=== PATIENT | male | born 1930 | race Caucasian/White ===

== ENCOUNTER → 2016-07-04 | Outpatient (CLI) | payer MEDICARE, OTHER ==
[~2016-07-04] MED LIST: COUMADIN5 MG PO; DIABETA5 MG PO; ENALAPRIL MALEA20 MG PO; LASIX40 MG PO; METFORMIN500 MG PO; NORVASC 10MG10 MG PO; POTASSIUM CL 220 MEQ PO; SOTALOL HCL80 MG PO; ZOCOR40 MG PO
== END ==
LOC: COL.RAD 12:36
DX: N50.9 Disorder of male genital organs, unspecified (principal)

== ENCOUNTER 2017-12-02 08:16 | Day surgery (SDC) | payer MEDICARE, OTHER ==
[2017-12-02] VITALS (7 sets, daily range): BP systolic 145–185; BP diastolic 73–101; PULSE 69–76; TEMP 97.2–98
[~2017-12-02] VITALS: Ht 172.7 cm; Wt 102.2 kg
[~2017-12-02 08:16] MED LIST changes: +COUMADIN4 MG PO; -COUMADIN5 MG PO
[2017-12-02 09:12] LABS: HEMATOCRIT 41.9 % (42.0-52.0); HEMOGLOBIN 14.4 g/dl (13.5-18.0); MEAN CELL VOLUME 104 fl (80.0-100.0); MEAN CORPUSCULAR HEMOGLOBIN 36 pg (27.0-31.0); MEAN CORPUSCULAR HGB CONC 34 g/dl (33.0-37.0); PLATELET COUNT 228 K/mm3 (130-400); RED BLOOD COUNT 4.03 M/mm3 (4.20-5.60); REDCELL DISTRIBUTION WIDTH-CV 15.1 % (11.5-14.5)
[2017-12-02 09:18] LABS: INR 2.2 (0.8-3.0); PROTHROMBIN TIME 24.8 SECONDS (9.7-12.8)
[2017-12-02 09:23] LABS: CREATININE, serum 1.55 mg/dL (0.66-1.25); POTASSIUM 4.8 mmol/L (3.4-5.0)
[2017-12-02] MEDS ORDERED: PACERONE400 MG PO (09:35)
[2017-12-02] MEDS ORDERED: CARDIZEM CD360 MG PO (09:37)
== END 2017-12-02 14:00 | disposition home or self-care (01) ==
LOC: COL.CAR 08:16
PROVIDERS: Internal Medicine Cardiovascular Disease
DX: I48.0 Paroxysmal atrial fibrillation (principal); I34.0 Nonrheumatic mitral (valve) insufficiency; I10 Essential (primary) hypertension; E78.5 Hyperlipidemia, unspecified; I35.0 Nonrheumatic aortic (valve) stenosis; I11.0 Hypertensive heart disease with heart failure; I50.9 Heart failure, unspecified; E11.9 Type 2 diabetes mellitus without complications; G47.33 Obstructive sleep apnea (adult) (pediatric); Z79.84 Long term (current) use of oral hypoglycemic drugs; Z79.899 Other long term (current) drug therapy
CPT/HCPCS: G9654; J2704; J3010; J7030

== ENCOUNTER 2018-11-19 16:33 | Inpatient (IN) | payer MEDICARE, BC ==
[~2018-11-19] VITALS: Ht 172.7 cm; Wt 98.8 kg
[~2018-11-19 16:33] MED LIST changes: +CARDIZEM CD360 MG PO; +PACERONE400 MG PO
[2018-11-19] MEDS ORDERED: GLUCOPHAGE1000 MG PO (17:20)
[2018-11-19] MEDS ORDERED: CORDARONE200 MG/TAB PO (17:21)
[2018-11-19] MEDS ORDERED: LASIX 20MG TABL20 MG PO (17:21)
[2018-11-19] MEDS ORDERED: VASOTEC20 MG PO (17:23)
[2018-11-19] MEDS ORDERED: COUMADIN 3MG3 MG/TAB PO (17:24)
[2018-11-19 17:26] LABS: BASO # 0.1 (0.0-0.2); BASO % 0.4 % (0.0-2.0); EOS # 0.1 (0.0-0.7); EOS % 0.7 % (0-4.0); GRAN # 10.8 (1.4-6.5); HEMATOCRIT 38.6 % (42.0-52.0); HEMOGLOBIN 12.8 g/dl (13.5-18.0); LYMPH # 1.1 (1.2-3.4); LYMPH % 7.9 % (20.0-51.0); MEAN CELL VOLUME 105 fl (80.0-100.0); MEAN CORPUSCULAR HEMOGLOBIN 35 pg (27.0-31.0); MEAN CORPUSCULAR HGB CONC 33 g/dl (33.0-37.0); MONO # 0.9 (0.1-0.6); PLATELET COUNT 406 K/mm3 (130-400); RED BLOOD COUNT 3.68 M/mm3 (4.20-5.60); REDCELL DISTRIBUTION WIDTH-CV 13.5 % (11.5-14.5)
[2018-11-19 17:27] LABS: INR 3.7 (0.8-3.0)
[2018-11-19 17:30] LABS: PARTIAL THROMBOPLASTIN TIME 52.7 SECONDS (26.0-37.0)
[2018-11-19 17:33] LABS: PROTHROMBIN TIME 45.6 SECONDS (9.7-12.8)
[2018-11-19 17:34] LABS: ARTERIAL BLD GAS O2 SATURATION 92.4 % (92-100); ARTERIAL BLD GAS TCO2 CT 23.9; ARTERIAL BLOOD GAS BASE EXCESS -0.8 (-2-2); ARTERIAL BLOOD GAS HCO3 22.9 meq/L (22-26); ARTERIAL BLOOD GAS PCO2 34.5 mmHg (35-45); ARTERIAL BLOOD GAS pH 7.44 (7.35-7.45)
[2018-11-19 17:36] LABS: ALANINE AMINOTRANSFERASE 56 U/L (21-72); ALBUMIN 3.3 gm/dL (3.5-5.0); ALKALINE PHOSPHATASE 116 U/L (50-136); ANION GAP 12 mmol/L (7-16); AST,SGOT 50 U/L (15-37); BILIRUBIN,TOTAL 0.4 mg/dL (0.0-1.0); BLOOD UREA NITROGEN 27 mg/dL (9-20); CALCIUM 8.7 mg/dL (8.4-10.2); CARBON DIOXIDE 23 mmol/L (22-30); CHLORIDE 105 mmol/L (98-107); CREATININE, serum 1.68 (0.66-1.25); GLUCOSE 140 mg/dL (74-106); POTASSIUM 4.4 mmol/L (3.4-5.0); SODIUM 140 mmol/L (137-145); TOTAL PROTEIN 6.3 gm/dL (6.4-8.2)
[2018-11-19 17:47] LABS: TROPONIN-I < 0.012 ng/mL (0.000-0.035)
[2018-11-19 19:19] LABS: COLLECTION METHOD CLEAN CATCH
[2018-11-19] MEDS ORDERED: OMEGA-3 1000 MG1 CAP PO (19:49)
[2018-11-19] MEDS ORDERED: VITAMIN D31000 I1 PO (19:50)
[2018-11-19 20:04] LABS: HYALINE CAST >12 /lpf; MUCOUS Present /lpf; PH 5 (5-8); SQUAMOUS EPITHELIAL 0-2 /hpf; URINE APPEARANCE Hazy; URINE BACTERIA None Seen /hpf; URINE BILIRUBIN Negative (NEGATIVE); URINE BLOOD Negative (NEGATIVE); URINE COLOR Yellow; URINE GLUCOSE Negative (NEGATIVE); URINE KETONE Negative (NEGATIVE); URINE LEUKOCYTE ESTERASE 2+ (NEGATIVE); URINE NITRATE Negative (NEGATIVE); URINE PROTEIN(semi-quant) Negative (NEGATIVE); URINE RBC 0-2 /hpf; URINE UROBILINOGEN Negative (NEGATIVE)
--- NOTE | 2018-11-19 21:25 | NUR ---
Pt. arrived to the floor via stretcher. Pt. is A&OX3, assessment complete. IV to lt. forearm patent. Pt. denies pain or other needs, call light within reach.
[2018-11-19 21:49] VITALS: BP 142/80; PULSE 71; TEMP 99.3
[2018-11-19 23:38] VITALS: BP 119/83; PULSE 85; TEMP 98.4
--- NOTE | 2018-11-20 03:09 | NUR ---
PT HAS A JUNKIE COUGH BUT NOTHING WILL COME UP. IF PT CAN COUGH UP SOME PHLEGM THEN BREATH SOUNDS WILL IMPROVE
[2018-11-20 03:34] VITALS: BP 104/55; PULSE 71; TEMP 98.3
[2018-11-20 05:38] LABS: HEMOGLOBIN 10.9 g/dl (13.5-18.0); MEAN CELL VOLUME 107 fl (80.0-100.0); MEAN CORPUSCULAR HEMOGLOBIN 35 pg (27.0-31.0); MEAN CORPUSCULAR HGB CONC 33 g/dl (33.0-37.0); MEAN PLATELET VOLUME 10.1 fl (7.4-10.4); PLATELET COUNT 338 K/mm3 (130-400); REDCELL DISTRIBUTION WIDTH-CV 13.7 % (11.5-14.5)
[2018-11-20 05:55] LABS: CALCIUM 8.1 mg/dL (8.4-10.2); CREATININE, serum 1.55 (0.66-1.25)
[2018-11-20 06:01] LABS: INR 3.6 (0.8-3.0); PROTHROMBIN TIME 43.6 SECONDS (9.7-12.8)
[2018-11-20 07:34] LABS: BAND 3 % (0-10); LYMPHOCYTE 10 % (20.0-51.0); NEUTROPHILS 82 % (42.0-75.2); PLATELET ESTIMATE NORMAL (NORMAL)
[2018-11-20 07:36] LABS: HYPOCHROMIA 1+
[2018-11-20 09:10] VITALS: BP 108/52; PULSE 70; TEMP 97.4
[2018-11-20 13:19] VITALS: BP 109/56; PULSE 73; TEMP 98
--- NOTE | 2018-11-20 13:26 | NUR ---
MARILUZ met with the patient to discuss a discharge plan. The pt lives alone 8 miles outside of [place] in [facility]. But it is [place] address. The pt does does not use any DME and reports independence with ADLs. The pt's PCP is Dr. Guevara and the pt receives his medications from [facility] in [place]. The pt reports no difficulties obtaining his medications. The pt does not have advanced directives in the EMR, but reports he does have them completed. Physcial therapy recommends possible HH services upon discharge. SW presented the pt with Medicare.gov's list of agencies that serve the [place] area and the pt chose [facility]. SW to fax referral and continue to follow to assist with discharge recommendations.
[2018-11-20 16:29] VITALS: BP 120/64; PULSE 71; TEMP 97.8
--- NOTE | 2018-11-20 19:40 | NUR ---
Patient in bed, family at bedside. Patient is on contact/droplet isolation for rhino/enterovirus. Pt has a productive cough with yellow sputum. Has oxygen on at 2L/nc. Lungs with coarseness to bases. SL to left forearm without redness or swelling, IV antibiotic infuses without problem.
[2018-11-20 19:51] VITALS: BP 115/76; PULSE 70; TEMP 97.5
[2018-11-21 00:20] VITALS: BP 139/76; PULSE 75; TEMP 97.6
--- NOTE | 2018-11-21 00:30 | NUR ---
Assisted to bathroom, voids and then to chair. Sent sputum to lab earlier in shift, patient has productive cough of yellow sputum. Has oxygen on at 2L/NC.
--- NOTE | 2018-11-21 02:51 | NUR ---
Assisted to bathroom then to bed. Cough remains loose.
[2018-11-21 03:57] VITALS: BP 107/59; PULSE 76; TEMP 97
[2018-11-21 06:40] LABS: HEMOGLOBIN 10.9 g/dl (13.5-18.0); INR 2.7 (0.8-3.0); MEAN CELL VOLUME 106 fl (80.0-100.0); MEAN CORPUSCULAR HEMOGLOBIN 35 pg (27.0-31.0); MEAN CORPUSCULAR HGB CONC 33 g/dl (33.0-37.0); MEAN PLATELET VOLUME 10.2 fl (7.4-10.4); PLATELET COUNT 355 K/mm3 (130-400); PROTHROMBIN TIME 32.2 SECONDS (9.7-12.8); RED BLOOD COUNT 3.12 M/mm3 (4.20-5.60); REDCELL DISTRIBUTION WIDTH-CV 13.7 % (11.5-14.5)
[2018-11-21 06:43] LABS: HEMATOCRIT 33.2 % (42.0-52.0)
[2018-11-21 06:52] LABS: CALCIUM 8.2 mg/dL (8.4-10.2); CREATININE, serum 1.51 (0.66-1.25)
[2018-11-21 07:11] VITALS: BP 134/68; PULSE 71; TEMP 98.3
--- NOTE | 2018-11-21 07:24 | NUR ---
Report from FABI Albright. YESENIA Daugherty reports that visitor was not wearing PPE and she edu'd. Droplet precautions.
--- NOTE | 2018-11-21 09:16 | NUR ---
Pt's daughter Liliam pittman, reports she lives 20 minutes away, requests pt showers today, supplies brought in and asked SAND TESTER for assistance. Pt in chair with feet up, NENANA with HAs and glasses, gripper socks in place.
[2018-11-21 09:32] LABS: BAND 5 % (0-10); EOSINOPHIL 4 % (0-4); LYMPHOCYTE 16 % (20.0-51.0); NEUTROPHILS 67 % (42.0-75.2); PLATELET ESTIMATE INCREASED (NORMAL)
[2018-11-21 11:25] VITALS: BP 131/69; PULSE 71; TEMP 97.9
--- NOTE | 2018-11-21 14:31 | NUR ---
Count Includes [facility] accepted the patient for services.
[2018-11-21 16:02] VITALS: BP 140/70; PULSE 78; TEMP 98.2
--- NOTE | 2018-11-21 18:29 | NUR ---
Pt bedresting with eyes closed, resps with ease.
[2018-11-21 20:19] VITALS: BP 127/60; PULSE 73; TEMP 97.8
--- NOTE | 2018-11-21 20:28 | NUR ---
Report to FABI Albright. Pt finishing supper in chair.
--- NOTE | 2018-11-21 21:00 | NUR ---
Patient up in chair at bedside, daughter is spending the night. Patient is alert and oriented x4. Is not currently wearing oxygen. Still has productive cough. IV antibiotic given at 2000 in left FA IV site, no redness or swelling noted. Does return demo of use of IS, able to get to 1000. Takes remainder of HS meds without difficulty.
[2018-11-22] VITALS (7 sets, daily range): BP systolic 107–153; BP diastolic 54–80; PULSE 61–82; TEMP 97.7–98.4
--- NOTE | 2018-11-22 00:10 | NUR ---
In bed, remains off oxygen at this time. Daughter at bedside.
--- NOTE | 2018-11-22 06:00 | NUR ---
Has been off oxygen this shift. Up in chair at bedside.
[2018-11-22 06:21] LABS: INR 1.8 (0.8-3.0)
--- NOTE | 2018-11-22 07:00 | NUR ---
Pt AAOx4 out of bed to chair, daughter at bedside, breakfast offered and accepted. Bilateral lower extremity edema present - pt states he has swelling "all the time". Call light in reach. No concerns at this time.
--- NOTE | 2018-11-22 21:00 | NUR ---
Patient in bed, denies needs at this time. Takes HS meds including Coumadin 3mg po at this time. Continues off oxygen, productive cough of white sputum. Daughter at bedside. SL to [facility], outdates today, patient reports going home tomorrow, site is without redness or swelling. Will not change at this time.
[2018-11-23] VITALS: BP 141/74; PULSE 77; TEMP 98.1
[2018-11-23 03:22] VITALS: BP 124/66; PULSE 77; TEMP 98
--- NOTE | 2018-11-23 05:20 | NUR ---
Patient up in recliner chair at bedside. Continues to be on room air. No concerns offered at this time.
[2018-11-23 06:47] LABS: INR 1.4 (0.8-3.0); PROTHROMBIN TIME 16.2 SECONDS (9.7-12.8)
[2018-11-23 07:11] VITALS: BP 136/69; PULSE 73; TEMP 97.7
[2018-11-23] MEDS ORDERED: PROAIR HFA0.09 MG/AC IH (08:42)
[2018-11-23] MEDS ORDERED: OMNICEF 300MG300 MG PO (08:44)
--- NOTE | 2018-11-23 09:02 | NUR ---
Patient resting in recliner at this time, call light in reach and daughter by his side. Patient denies pain at this time. Ate 100% of breakfast this morning. Denies nausea. Had an incontinent BM this morning. Dr. Awad saw patient and Discharge orders were place.
--- NOTE | 2018-11-23 09:53 | NUR ---
The patient is to discharge back home today, 11/23, with home health services for PT/OT/Usp through [facility]. SW presented and explained the IM form to the patient. The patient verbalized understanding, signed, and he was provided a copy. No additional needs at this time.
[2018-11-23 11:16] VITALS: BP 108/60; PULSE 76; TEMP 98
--- NOTE | 2018-11-23 12:11 | NUR ---
Patient Health Summary, Discharge Summary, and Home Meds printed and reviewed with patient and daughters. Stressed importance of follow up appointments. Belongings gathered by Shanna/FABI and daughters including hearing aids, glasses and walker. Patient transported via wheelchair by FABI/Tammy and seatbelted for ride home with daughter. Patient and daughter denied questions.
== END 2018-11-23 12:00 | disposition home health service (06) | DRG 871 ==
LOC: COL.ER 16:33 → MEDICAL 17:52 → EDBEDREQ 19:51 → SURG 20:01
PROVIDERS: Family Medicine; Internal Medicine; Nurse Practitioner Family; Physician Assistant; ADMIT Family Medicine
DX: A41.9 Sepsis, unspecified organism (principal); J18.1 Lobar pneumonia, unspecified organism; J96.01 Acute respiratory failure with hypoxia; J12.89 Other viral pneumonia; N39.0 Urinary tract infection, site not specified; I48.91 Unspecified atrial fibrillation; Z79.01 Long term (current) use of anticoagulants; E11.22 Type 2 diabetes mellitus with diabetic chronic kidney disease; I12.9 Hypertensive chronic kidney disease with stage 1 through stage 4 chronic kidney disease, or unspecified chronic kidney disease; N18.9 Chronic kidney disease, unspecified; I87.2 Venous insufficiency (chronic) (peripheral)
CPT/HCPCS: 99222-AI; 99232-AI; 99239; A4216; A9284; J0696; J1815; J7030

== ENCOUNTER → 2018-12-25 | Outpatient (CLI) | payer MEDICARE, BC ==
[~2018-12-25] MED LIST changes: +CORDARONE200 MG/TAB PO; +COUMADIN 3MG3 MG/TAB PO; +GLUCOPHAGE1000 MG PO; +LASIX 20MG TABL20 MG PO; +OMEGA-3 1000 MG1 CAP PO; +OMNICEF 300MG300 MG PO; +PROAIR HFA0.09 MG/AC IH; +VASOTEC20 MG PO; +VITAMIN D31000 I1 PO
== END ==
LOC: COL.RAD 12:41
DX: J18.1 Lobar pneumonia, unspecified organism (principal); J98.4 Other disorders of lung; I51.7 Cardiomegaly; I25.10 Atherosclerotic heart disease of native coronary artery without angina pectoris; I35.8 Other nonrheumatic aortic valve disorders; D73.89 Other diseases of spleen

== ENCOUNTER → 2018-12-29 | Outpatient (CLI) | payer MEDICARE, BC | LOC: COL.RAD 08:01 → COL.PUL 10:00 | DX: R06.00 Dyspnea, unspecified (principal); R05 Cough; Z87.891 Personal history of nicotine dependence ==

== ENCOUNTER 2019-06-14 18:22 | Inpatient (IN) | payer MEDICARE, BC ==
[~2019-06-14] VITALS: Ht 172.7 cm; Wt 95.6 kg
[2019-06-14 19:02] LABS: BASO % 0.2 % (0.0-2.0); EOS # 0.1 (0.0-0.7); EOS % 1.2 % (0-4.0); GRAN # 6.3 (1.4-6.5); GRAN % 77.2 % (42.2-75.2); HEMOGLOBIN 10.5 g/dl (13.5-18.0); LYMPH # 1.2 (1.2-3.4); LYMPH % 14.8 % (20.0-51.0); MEAN CELL VOLUME 109 fl (80.0-100.0); MEAN CORPUSCULAR HEMOGLOBIN 36 pg (27.0-31.0); MEAN CORPUSCULAR HGB CONC 33 g/dl (33.0-37.0); MEAN PLATELET VOLUME 10.4 fl (7.4-10.4); MONO # 0.5 (0.1-0.6); MONO % 5.9 % (1.7-9.3); PLATELET COUNT 245 K/mm3 (130-400); RED BLOOD COUNT 2.89 M/mm3 (4.20-5.60); REDCELL DISTRIBUTION WIDTH-CV 17.5 % (11.5-14.5)
[2019-06-14 19:07] LABS: HEMATOCRIT 31.4 % (42.0-52.0)
[2019-06-14 19:09] LABS: INR 2.5 (0.8-3.0)
[2019-06-14 19:19] LABS: ALANINE AMINOTRANSFERASE 23 U/L (21-72); ALBUMIN 3.9 gm/dL (3.5-5.0); ALKALINE PHOSPHATASE 89 U/L (50-136); ANION GAP 12 mmol/L (7-16); AST,SGOT 24 U/L (15-37); BILIRUBIN,TOTAL 0.3 mg/dL (0.0-1.0); BLOOD UREA NITROGEN 51 mg/dL (9-20); CARBON DIOXIDE 15 mmol/L (22-30); CHLORIDE 111 mmol/L (98-107); CREATININE, serum 4.61 (0.66-1.25); GLUCOSE 92 mg/dL (74-106); MAGNESIUM 1.3 mg/dL (1.6-2.3); PHOSPHOROUS 3.4 mg/dL (2.5-4.5); SODIUM 139 mmol/L (137-145); TOTAL PROTEIN 6.7 gm/dL (6.4-8.2)
[2019-06-14 19:35] LABS: C-REACTIVE PROTEIN < 0.5 mg/dL (0.0-0.9); POTASSIUM 6.1 mmol/L (3.4-5.0); TROPONIN-I < 0.012 ng/mL (0.000-0.035)
[2019-06-14] MEDS ORDERED: CARTIA XT180 MG PO (19:45)
[2019-06-14] MEDS ORDERED: GLUCOPHAGE500 MG/TAB PO (19:46)
[2019-06-14] MEDS ORDERED: COUMADIN 2MG2 MG/TAB PO (19:47)
[2019-06-14 20:03] LABS: COLLECTION METHOD CLEAN CATCH
[2019-06-14 20:11] LABS: PH 5 (5-8); URINE APPEARANCE Hazy; URINE BACTERIA None Seen /hpf; URINE BILIRUBIN Negative (NEGATIVE); URINE BLOOD 1+ (NEGATIVE); URINE COLOR Yellow; URINE GLUCOSE Negative (NEGATIVE); URINE KETONE Negative (NEGATIVE); URINE LEUKOCYTE ESTERASE 1+ (NEGATIVE); URINE NITRATE Negative (NEGATIVE); URINE PROTEIN(semi-quant) Negative (NEGATIVE); URINE UROBILINOGEN Negative (NEGATIVE)
--- NOTE | 2019-06-14 21:50 | NUR ---
PT ADMITTED TO ROOM 353 FOR TREATMENT OF RODGER, HYPERKALEMIA. PT IS AWAKE, ALERT, OX3; ACCOMAPNIED BY DAUGHTERS X2. PT REPORTS SOME MILD PAIN TO HIS PENIS D/T CHATMAN INSERTION, DENIES OTHER PAIN. REPORTS SOME SOB WITH ACTIVITY, OCC PRODUCTIVE COUGH NOTED, REPORTS SOME WHITE COLORED SPUTUM OCC. LS CLEAR TO UPPER LOBES WITH FINE CRACKLES NOTED TO BASES BILAT. HEART SOUNDS ARE REG WITH DISTINCT MURMUR NOTED; PT HAS HX OF AFIB AND CARDIOVERSION X3. PT DENIES CP. CHATMAN CATH IN PLACE WITH CLEAR, YELLOW URINE NOTED IN BAG. PT REPORTS INCREASED WEAKNESS OVER THE PAST FEW WEEKS AND REPORTS A FALL AT HOME ON FRIDAY. STATES HE OCC GETS DIZZY AT HOME. PT AMBULATES WITH USE OF WALKER. HAVE NOT OBSERVED GAIT AT THIS TIME. DAUGHTER REPORTS PT HAS HAD APPROX 34# UNPLANNED WEIGHT LOSS OVER THE PAST YEAR. PT REPORTS DECREASED APPETITE. PT HAS SOME NOTED EDEMA TO BILAT LE'S WITH LEFT GREATER THAN RIGHT AT 3+; PT STATES THIS NEVER COMPLETELY RESOLVES DISPITE USE OF LASIX. PT AHS DISCOLORATION TO BLE'S D/T DECREASED CIRCULATION. SMALL SCABBED SORES, ABRASIONS NOTED TO BILAT SHINS. PT HAS AN ABRASION TO L KNEE FROM HIS RECENT FALL. NO OTHER SKIN ISSUES NOTED. PT ORIENTED TO ROOM AND POC. CALL LIGHT WITHIN REACH.
[2019-06-14 22:07] VITALS: BP 120/64; PULSE 70; TEMP 98.1
[2019-06-14 23:00] LABS: RETIC # 0.09 M/mm3 (0.02-0.16); RETIC % 3.2 % (0.5-3.52)
[2019-06-14 23:41] VITALS: BP 128/68; PULSE 70; TEMP 97.8
--- NOTE | 2019-06-15 00:18 | NUR ---
PT IS SLEEPING WITH NO S/S OF DISTRESS NOTED AT THIS TIME. CALL LIGHT WITHIN REACH, BED EXIT ALARM ACTIVATED.
--- NOTE | 2019-06-15 02:21 | NUR ---
DR PARKER CONTACTED BY PHONE REGARDING PT HAVING NO STOOLS FOLLOWING DOSE OF KAEXOLATE 4+ HOURS AGO IN ED. NO FURTHER ORDERS AT THIS TIME. DR PARKER STATES "WAIT TO SEE HIS LABS IN THE MORNING."
[2019-06-15 03:05] VITALS: BP 159/76; PULSE 77; TEMP 97.3
--- NOTE | 2019-06-15 03:20 | NUR ---
PT ASSISTED UP TO BSC TO HAVE BM. CALL LIGHT WITHIN REACH. PT INSTRUCTED TO CALL FOR RN WHEN FINISHED.
--- NOTE | 2019-06-15 05:29 | NUR ---
PT HAS HAD A GOOD NIGHT ONCE ABLE TO SLEEP FOLLOWING ADMISSION. PT UP AT APPROX 0330 TO HAVE A BM D/T KAEXOLATE GIVEN IN ED. BM WAS LARGE, LOOSE STOOL. OCCULT BLOOD COLLECTED AND RESULT IS NEGATIVE. PT GAIT WEAK AND WOBBLY, X1 ASSIST WITH USE OF WALKER. IV CONT TO INFUSE AT 150ML/HR WITHOUT ISSUES. CHATMAN CATH DRAINING CLEAR, YELLOW URINE. PT USES CALL LIGHT APPROPRIATELY.
--- NOTE | 2019-06-15 06:27 | NUR ---
Warfarin Initial Dosing Pharmacy Note Ordering Provider: Donte Young MD Indication: Atrial fibrillation LABS: INR 2.5 Recommendation: Will continue home regimen of Warfarin 2 mg po qHS. Pharmacy will continue to monitor and check daily INR levels. Home Regimen: Warfarin 2 mg po qHS
--- NOTE | 2019-06-15 07:18 | NUR ---
REPORT GIVEN TO FABI CROW.
[2019-06-15 07:51] LABS: INR 2.9 (0.8-3.0); PROTHROMBIN TIME 34.6 SECONDS (9.7-12.8)
[2019-06-15 07:52] VITALS: BP 151/79; PULSE 70; TEMP 98
[2019-06-15 08:04] LABS: ALBUMIN 2.9 gm/dL (3.5-5.0); CREATININE, serum 3.91 (0.66-1.25); PHOSPHOROUS 3.3 mg/dL (2.5-4.5); POTASSIUM 5.1 mmol/L (3.4-5.0)
[2019-06-15 08:50] LABS: CREATININE, serum 3.91 (0.66-1.25)
[2019-06-15 08:51] LABS: FRACTIONAL EXCRETION OF NA+ 4.4 %
--- NOTE | 2019-06-15 08:54 | NUR ---
Py sitting up in bed eating breakfast upon entry, no C/O pain at this time, shift assessments complete, left Pt call light in reach, bed in lowest position.
[2019-06-15 12:03] VITALS: BP 155/78; PULSE 96; TEMP 97.8
--- NOTE | 2019-06-15 15:40 | NUR ---
counter supply worker met with patient and then contacted daughter, Stephanie Tran #[phone] to discuss discharge planning. Patient states he lives alone and has been driving. Patient states that he will give up driving and feels that someone will need to stay with him. Stephanie states they are planning to build a ramp into patient's kitchen as they have lift patient's legs as he walks the stairs. Worker will request physical therapy and gave information on skilled care. Patient was at [facility] for swing bed in 2005. Worker provided senior care options and Stephanie states she will speak to patient and they will give a preference. Patient's primary care provider is Dr Jose Guevara and Stephanie states she will bring in patient's durable power of grinding machine operator portable for health care and that she is listed on the document. Patient's plan will be to transfer to a rehab facility upon discharge.
[2019-06-15 17:51] VITALS: BP 111/58; PULSE 73; TEMP 98
--- NOTE | 2019-06-15 18:37 | NUR ---
Pt resting in the room, no C/O pain today, VS have remained stable.
[2019-06-15 20:36] VITALS: BP 105/75; PULSE 79; TEMP 98.5
--- NOTE | 2019-06-15 20:50 | NUR ---
Shift assessment complete. Pt resting in bed, awake, a&o, cooperative c cares. Pt denies pain or any other c/o at this time. INT patent. Tele in place. Pt denies needs. Call light in reach, bed alarm on. Will continue to monitor.
[2019-06-15 23:36] VITALS: BP 102/66; PULSE 70; TEMP 98
[2019-06-16 03:41] VITALS: BP 103/55; PULSE 70; TEMP 98.6
[2019-06-16 06:58] LABS: ALBUMIN 2.5 gm/dL (3.5-5.0); CALCIUM 7.5 mg/dL (8.4-10.2); CREATININE, serum 3.8 (0.66-1.25); PHOSPHOROUS 4.2 mg/dL (2.5-4.5); POTASSIUM 3.7 mmol/L (3.4-5.0)
[2019-06-16 07:16] LABS: INR 2.7 (0.8-3.0); PROTHROMBIN TIME 32.6 SECONDS (9.7-12.8)
[2019-06-16 08:04] VITALS: BP 108/59; PULSE 70; TEMP 98
--- NOTE | 2019-06-16 10:08 | NUR ---
Pt sitting up in the recliner, family in the room, no C/O pain at this time, shift assessments complete, left Pt call light in reach.
[2019-06-16 12:06] VITALS: BP 83/45; PULSE 70; TEMP 98.3
--- NOTE | 2019-06-16 13:14 | NUR ---
Transfer And Line Up Worker met with patient and patient's daughter, Stephanie Austin" (ph#[phone]) to review discharge plan. Patient states he would like to go to [facility] if possible. SW presented Patient Preference Form and patient selected [facility] then provided signature. MARILUZ contacted Emilee [facility] Coordinator who will review referral. MARILUZ spoke with Dr. Young who advised he will order Physical Therapy for patient. SW to continue to follow.
[2019-06-16 15:32] VITALS: BP 85/42; PULSE 59; TEMP 98.2
--- NOTE | 2019-06-16 18:38 | NUR ---
Pt rested in the room today, spent the afternoon sitting up in the recliner, no C/O pain during the day, VS have remained stable.
[2019-06-16 20:02] VITALS: BP 88/48; PULSE 70; TEMP 98.4
[2019-06-16 23:26] VITALS: BP 103/68; PULSE 70; TEMP 97.3
[2019-06-17] VITALS (7 sets, daily range): BP systolic 85–120; BP diastolic 43–78; PULSE 62–71; TEMP 97.9–98.6
--- NOTE | 2019-06-17 00:49 | NUR ---
Patient sitting in recliner at beginning of shift. Blood pressure noted to be 88/48. Dr. Young notified and ordered to hold diltiazem and give Normal Saline 250ml over 5 hours. Blood pressure has increased to 103/68. Patient resting in bed at this time. Denies pain. Aguilar catheter present and draining clear, yellow urine. Will continue to monitor patient.
--- NOTE | 2019-06-17 09:22 | NUR ---
Initial visit; Patient thanked Carboy Filler for helping him sit up and get situated with his breakfast. He was unable to get food close to him and unwrap and open it. He thanked Carboy Filler for spiritual care as well.
[2019-06-17 09:30] LABS: ALBUMIN 2.7 gm/dL (3.5-5.0); CALCIUM 7.8 mg/dL (8.4-10.2); CREATININE, serum 4.29 (0.66-1.25); PHOSPHOROUS 4.5 mg/dL (2.5-4.5); POTASSIUM 3.6 mmol/L (3.4-5.0)
[2019-06-17 09:42] LABS: INR 2.3 (0.8-3.0)
[2019-06-17 13:03] LABS: COLLECTION METHOD IN
[2019-06-17 13:17] LABS: MUCOUS Present /lpf; PH 5 (5-8); SQUAMOUS EPITHELIAL 0-2 /hpf; URINE APPEARANCE Hazy; URINE BACTERIA Rare /hpf; URINE BILIRUBIN Negative (NEGATIVE); URINE BLOOD 3+ (NEGATIVE); URINE COLOR Yellow; URINE GLUCOSE Negative (NEGATIVE); URINE KETONE Negative (NEGATIVE); URINE LEUKOCYTE ESTERASE 1+ (NEGATIVE); URINE NITRATE Negative (NEGATIVE); URINE PROTEIN(semi-quant) 1+ (NEGATIVE); URINE RBC >50 /hpf; URINE UROBILINOGEN Negative (NEGATIVE)
--- NOTE | 2019-06-17 15:51 | NUR ---
Automobile Dealer contacted Emilee at [facility] who advised they can accept patient. SW contacted patient's daughter, Amber to provide update. Amber advised that patient may not be able to discharge tomorrow per Dr. Young. MARILUZ spoke with Amber about transportation and advised [facility] does not provide transportation. Amber advised familiy will be able to provide transportation. SW to continue to follow.
--- NOTE | 2019-06-17 20:09 | NUR ---
Pt up to chair for majority of day. Daughter present most of the day to visit. Aguilar catheter in place with minimal output even after lasix administration. Pts brief noted to have significant output in and even on pts gown and pad under him. Pt was cleansed and changed. Ensured no kinks in catheter tubing. Appears to flow freely to DD bag.
--- NOTE | 2019-06-17 21:00 | NUR ---
PT SITTING UP IN RECLINER. NO RESP DISTRESS AT REST. NO PAIN AT THIS TIME. IV NOT FLUSHING. LEAKING AT SITE W/ OLD BLOOD NOTED. WILL CHANGE IV SITE SOON POSSIBLE. LOWER LEGS DISCOLORED PVD?. SCABS ON BILAT SHINS. F/C DRAINING FREELY. WEARS BRIEFS PER REQ. CALL LIGHT IN REACH ASSISTD TO BED. WEAK UNSTAEDY GAIT PIVOT TRANSFER WITH WALKER.
--- NOTE | 2019-06-18 01:11 | NUR ---
New 22 G IV started to right forearm. Good blood return and flushed well. Old IV site D/C'd to left forearm. While taking out, scant amount of thick white/yellow purulent drainage noted from IV site. Cleansed and covered. Denies pain and discomfort to area.
[2019-06-18 04:36] VITALS: BP 111/44; PULSE 69; TEMP 98
[2019-06-18 07:26] LABS: INR 2.2 (0.8-3.0); PROTHROMBIN TIME 26.4 SECONDS (9.7-12.8)
[2019-06-18 07:27] LABS: MEAN CELL VOLUME 108 fl (80.0-100.0); MEAN CORPUSCULAR HGB CONC 33 g/dl (33.0-37.0); PLATELET COUNT 164 K/mm3 (130-400); RED BLOOD COUNT 2.27 M/mm3 (4.20-5.60); REDCELL DISTRIBUTION WIDTH-CV 17.1 % (11.5-14.5)
[2019-06-18 07:30] LABS: HEMATOCRIT 24.5 % (42.0-52.0); HEMOGLOBIN 8.1 g/dl (13.5-18.0); MEAN CORPUSCULAR HEMOGLOBIN 36 pg (27.0-31.0)
[2019-06-18 07:35] VITALS: BP 102/49; PULSE 69; TEMP 98.3
[2019-06-18 07:39] LABS: ALBUMIN 2.6 gm/dL (3.5-5.0); CALCIUM 7.8 mg/dL (8.4-10.2); CREATININE, serum 4.58 (0.66-1.25); PHOSPHOROUS 5.1 mg/dL (2.5-4.5); POTASSIUM 3.6 mmol/L (3.4-5.0)
[2019-06-18 08:31] LABS: BAND 10 % (0-10); EOSINOPHIL 2 % (0-4); LYMPHOCYTE 11 % (20.0-51.0); METAMYELOCYTE 1 % (0-0); MYELOCYTE 1 % (0-0); NEUTROPHILS 72 % (42.0-75.2)
[2019-06-18 08:32] LABS: PLATELET ESTIMATE NORMAL (NORMAL)
[2019-06-18 12:51] VITALS: BP 98/57; PULSE 71; TEMP 98.2
[2019-06-18 15:22] VITALS: BP 96/48; PULSE 69; TEMP 97.3
--- NOTE | 2019-06-18 18:26 | NUR ---
Patient sitting up in the recliner. A&O. Denies pain and discomfort. VSS. IV CDI. No further needs expressed from patient. Call light within reach
[2019-06-18 21:51] VITALS: BP 111/48; PULSE 71; TEMP 97.6
--- NOTE | 2019-06-18 22:42 | NUR ---
Pt doing well. Resting in chair. Alert and oriented with VSS. INT to R forearm. 1250 FR. Denies pain or needs at this time. Call light within reach, will continue to monitor
[2019-06-19] VITALS (7 sets, daily range): BP systolic 85–107; BP diastolic 41–57; PULSE 70–72; TEMP 97.5–98.7
--- NOTE | 2019-06-19 01:26 | NUR ---
Pt sleeping in bed comfortably. Call light within reach, will continue to monitor
[2019-06-19 06:28] LABS: BASO % 0.3 % (0.0-2.0); EOS # 0.1 (0.0-0.7); GRAN # 2.7 (1.4-6.5); LYMPH # 0.6 (1.2-3.4); LYMPH % 14.6 % (20.0-51.0); MEAN CELL VOLUME 107 fl (80.0-100.0); MEAN CORPUSCULAR HGB CONC 34 g/dl (33.0-37.0); MEAN PLATELET VOLUME 11.1 fl (7.4-10.4); MONO # 0.6 (0.1-0.6); MONO % 13.8 % (1.7-9.3); PLATELET COUNT 161 K/mm3 (130-400); RED BLOOD COUNT 2.11 M/mm3 (4.20-5.60)
[2019-06-19 06:37] LABS: ALBUMIN 2.5 gm/dL (3.5-5.0); CALCIUM 7.7 mg/dL (8.4-10.2); CREATININE, serum 4.9 (0.66-1.25); PHOSPHOROUS 5.5 mg/dL (2.5-4.5); POTASSIUM 3.9 mmol/L (3.4-5.0)
[2019-06-19 06:45] LABS: HEMATOCRIT 22.6 % (42.0-52.0); HEMOGLOBIN 7.6 g/dl (13.5-18.0); MEAN CORPUSCULAR HEMOGLOBIN 36 pg (27.0-31.0)
[2019-06-19 07:30] LABS: INR 1.9 (0.8-3.0)
--- NOTE | 2019-06-19 10:09 | NUR ---
PATIENT ASSESSMENT COMPLETED. HE IS UP IN THE CHAIR. WARM BLANKET PROVIDED FOR COMPLAINTS OF BEING COLD. NO OTHER NEEDS AT THIS TIME
--- NOTE | 2019-06-19 20:00 | NUR ---
Received report from FABI Duarte. Assessment complete. Family at bedside. Alert and oriented. Denies any pain or discomfort at this time. Denies SOB. Pt sitting in recliner watcher TV. Aguilar catheter in place, secured to RL, draining clear yellow urine. LUE +2 edema, elevated on pillow; BLE +2 edema, elevated. Meds administered as ordered. Tele monitor in place, leads checked. Needs attended too. Call light within reach.
[2019-06-20 04:23] VITALS: BP 113/55; PULSE 71; TEMP 97.3
--- NOTE | 2019-06-20 05:34 | NUR ---
Pt uneventful during this shift. No complaints made. Call light within reach.
--- NOTE | 2019-06-20 06:44 | NUR ---
Report given to FABI Duarte.
[2019-06-20 07:55] LABS: BASO % 0.3 % (0.0-2.0); EOS % 1.1 % (0-4.0); GRAN # 2.5 (1.4-6.5); GRAN % 66.2 % (42.2-75.2); LYMPH # 0.6 (1.2-3.4); MEAN CELL VOLUME 107 fl (80.0-100.0); MEAN CORPUSCULAR HGB CONC 34 g/dl (33.0-37.0); MEAN PLATELET VOLUME 11.1 fl (7.4-10.4); MONO # 0.5 (0.1-0.6); MONO % 14.1 % (1.7-9.3); PLATELET COUNT 164 K/mm3 (130-400); RED BLOOD COUNT 2.19 M/mm3 (4.20-5.60); REDCELL DISTRIBUTION WIDTH-CV 17.3 % (11.5-14.5)
[2019-06-20 07:56] VITALS: BP 94/51; PULSE 70; TEMP 98.2
[2019-06-20 07:58] LABS: INR 1.9 (0.8-3.0)
[2019-06-20 08:01] LABS: HEMATOCRIT 23.5 % (42.0-52.0); MEAN CORPUSCULAR HEMOGLOBIN 37 pg (27.0-31.0)
[2019-06-20 08:06] LABS: ALBUMIN 2.6 gm/dL (3.5-5.0); CALCIUM 7.8 mg/dL (8.4-10.2); PHOSPHOROUS 5.5 mg/dL (2.5-4.5); POTASSIUM 4.2 mmol/L (3.4-5.0)
--- NOTE | 2019-06-20 08:40 | NUR ---
PATIENT ASSESSMENT COMPLETED HE IS UP IN THE CHAIR FOR BREAKFAST. NO FURTHER NEEDS AT THIS TIME.
--- NOTE | 2019-06-20 11:44 | NUR ---
PATIENT SLEEPING IN RECLINER NO DISTRESS NOTED
[2019-06-20 11:59] VITALS: BP 91/45; PULSE 66; TEMP 97.6
[2019-06-20 16:40] VITALS: BP 100/48; PULSE 70; TEMP 97.6
--- NOTE | 2019-06-20 20:00 | NUR ---
Received report from FABI Duarte. Assessment complete. Pt sitting up in recliner with feet up. Assisted pt back to bed. Denies any pain or discomfort at this time. Denies SOB. Meds administered as ordered. Aguilar catheter in place secured to RL, draining clear yellow urine. INT ERIC intact, flushed, dressing CDI. Tele monitor in place, leads checked. Needs attended too. Call light within reach.
[2019-06-20 22:01] VITALS: BP 107/56; PULSE 70; TEMP 97.3
[2019-06-21 00:53] VITALS: BP 114/54; PULSE 71; TEMP 97.4
[2019-06-21 03:57] VITALS: BP 97/39; PULSE 73; TEMP 97.5
[2019-06-21 06:20] LABS: MEAN CELL VOLUME 108 fl (80.0-100.0); MEAN CORPUSCULAR HGB CONC 33 g/dl (33.0-37.0); MEAN PLATELET VOLUME 10.7 fl (7.4-10.4); PLATELET COUNT 194 K/mm3 (130-400); RED BLOOD COUNT 2.04 M/mm3 (4.20-5.60); REDCELL DISTRIBUTION WIDTH-CV 17.1 % (11.5-14.5)
[2019-06-21 06:22] LABS: HEMATOCRIT 22.1 % (42.0-52.0); HEMOGLOBIN 7.3 g/dl (13.5-18.0); MEAN CORPUSCULAR HEMOGLOBIN 36 pg (27.0-31.0)
[2019-06-21 06:24] LABS: INR 2.3 (0.8-3.0); PROTHROMBIN TIME 27.6 SECONDS (9.7-12.8)
[2019-06-21 06:42] LABS: ALBUMIN 2.4 gm/dL (3.5-5.0); CALCIUM 7.7 mg/dL (8.4-10.2); CREATININE, serum 5.42 (0.66-1.25); PHOSPHOROUS 6.1 mg/dL (2.5-4.5); POTASSIUM 3.9 mmol/L (3.4-5.0)
[2019-06-21 07:15] LABS: BAND 9 % (0-10); EOSINOPHIL 1 % (0-4); LYMPHOCYTE 13 % (20.0-51.0); METAMYELOCYTE 1 % (0-0); NEUTROPHILS 69 % (42.0-75.2)
[2019-06-21 07:16] LABS: HYPOCHROMIA 2+; PLATELET ESTIMATE NORMAL (NORMAL)
--- NOTE | 2019-06-21 07:18 | NUR ---
Assisted pt to BSC x2 during this shift. Had watery brown stools. No complaints made. Pt assisted to recliner chair with legs elevated. Aguilar drained. Call light within reach. Needs attended too. Report given to FABI Strickland.
[2019-06-21 08:32] VITALS: BP 96/49; PULSE 73; TEMP 98.1
[2019-06-21 12:44] VITALS: BP 96/45; PULSE 69; TEMP 97.4
--- NOTE | 2019-06-21 17:10 | NUR ---
Assessment completed, alert/oriented, vital signs stable/ SBP soft and is aware, denies pain, heart RRR/ paced on tele, 2-3+ edema to BLE and BUE, garcia cath patent with clear yellow urine, UOP is marginal, creat increased today and GFR unchanged, lungs CTA/ no resp.difficulty noted, spoke with daughter and discussed plan of care, will continue to monitor
[2019-06-21 17:21] VITALS: BP 102/45; PULSE 69; TEMP 97.7
--- NOTE | 2019-06-21 19:34 | NUR ---
Received report from FABI Strickland.
--- NOTE | 2019-06-21 20:00 | NUR ---
Assessment complete. Pt sitting up in recliner chair watching TV, BLE elevated. Denies any pain or discomfort at this time. Alert and oriented. Meds administered as ordered. Aguilar catheter intact, secured to LL, draining yellow clear urine. Needs attended too. Call light within reach.
[2019-06-21 20:09] VITALS: BP 99/44; PULSE 70; TEMP 98.4
[2019-06-22] VITALS (7 sets, daily range): BP systolic 90–120; BP diastolic 37–50; PULSE 70–78; TEMP 97.7–98.6
--- NOTE | 2019-06-22 05:34 | NUR ---
Pt uneventful during this shift. No complaints made. Needs met. Call light within reach. Meds administered as ordered. Aguilar catheter drained.
--- NOTE | 2019-06-22 05:58 | NUR ---
Assisted pt out of bed and to recliner with legs elevated. Personal items and call light within reach. Meds administered.
--- NOTE | 2019-06-22 06:45 | NUR ---
up in chair and appears to be sleeping, bedside shift report received from FABI Velazquez
--- NOTE | 2019-06-22 07:02 | NUR ---
Report given to FABI Duarte.
[2019-06-22 08:04] LABS: MEAN CELL VOLUME 107 fl (80.0-100.0); MEAN CORPUSCULAR HGB CONC 34 g/dl (33.0-37.0); MEAN PLATELET VOLUME 10.6 fl (7.4-10.4); PLATELET COUNT 193 K/mm3 (130-400); RED BLOOD COUNT 2.08 M/mm3 (4.20-5.60); REDCELL DISTRIBUTION WIDTH-CV 16.8 % (11.5-14.5)
[2019-06-22 08:05] LABS: HEMATOCRIT 22.3 % (42.0-52.0); HEMOGLOBIN 7.5 g/dl (13.5-18.0); MEAN CORPUSCULAR HEMOGLOBIN 36 pg (27.0-31.0)
[2019-06-22 08:07] LABS: INR 2.1 (0.8-3.0); PROTHROMBIN TIME 25.5 SECONDS (9.7-12.8)
[2019-06-22 08:13] LABS: ALBUMIN 2.5 gm/dL (3.5-5.0); CALCIUM 7.6 mg/dL (8.4-10.2); CREATININE, serum 5.06 (0.66-1.25); PHOSPHOROUS 6.2 mg/dL (2.5-4.5); POTASSIUM 3.7 mmol/L (3.4-5.0)
--- NOTE | 2019-06-22 08:30 | NUR ---
remains up in chair and sleeping, awakened and assisted him with sitting up for breakfast, denies needs at this time
[2019-06-22 08:34] LABS: BAND 6 % (0-10); EOSINOPHIL 2 % (0-4); LYMPHOCYTE 29 % (20.0-51.0); METAMYELOCYTE 1 % (0-0); NEUTROPHILS 56 % (42.0-75.2); PLATELET ESTIMATE NORMAL (NORMAL)
[2019-06-22 08:35] LABS: ANISOCYTOSIS 1+
--- NOTE | 2019-06-22 09:15 | NUR ---
remains up in chair, had breakfast and tolerated well, full assessment completed, see interventions for further info, has edema to bilateral upper and lower extremities, c/o hearaids not working well this am and needs new batteries, will contact daughter to bring them in, denies pain or other needs, garcia cath patent draining clear yellow urine
--- NOTE | 2019-06-22 11:00 | NUR ---
family in to visit, assisted up to bathroom to have a bowel movement, moves with slow steady gait
--- NOTE | 2019-06-22 12:20 | NUR ---
remains up in chair with family at bedside, medications administered as ordered, garcia cath patent
--- NOTE | 2019-06-22 13:52 | NUR ---
remains up in recliner after having had lunch, denies needs
--- NOTE | 2019-06-22 15:06 | NUR ---
is now back in bed and appears to be trying to sleep
--- NOTE | 2019-06-22 16:11 | NUR ---
daughter at bedside and states he is c/o pain to right leg and that earlier when he was ambulating with therapy the right knee "buckled" and he was assisted back to bed
--- NOTE | 2019-06-22 16:21 | NUR ---
assessed right leg, no redness or warmth noted, has some edema as he had this am, patient states he feels like it is his muscle
--- NOTE | 2019-06-22 17:02 | NUR ---
Home Health Care Provider met with patient's daughter Amber who advised she was interested in exploring placements in [place], specifically [facility]. SW faxed referrals and will continue to follow.
--- NOTE | 2019-06-22 19:02 | NUR ---
sitting up in chair, eating supper, bedside shift report given to FABI Baez
--- NOTE | 2019-06-23 02:54 | NUR ---
Patient noted to have +2 edema to bilateral upper extremities and generalized edema, and +3 to bilateral lower extremities. Lung sounds like pleural friction rubs bilaterally. Aguilar draining clear, yellow urine. INT to right upper arm. Noted to utilize walker and 1 assist from staff for transfers and ambulation. Denies pain. Will continue to monitor patient.
[2019-06-23 04:01] VITALS: BP 110/47; PULSE 86; TEMP 98
[2019-06-23 06:50] LABS: PROTHROMBIN TIME 24.1 SECONDS (9.7-12.8)
[2019-06-23 06:52] LABS: MEAN CELL VOLUME 108 fl (80.0-100.0); MEAN CORPUSCULAR HGB CONC 34 g/dl (33.0-37.0); MEAN PLATELET VOLUME 10.6 fl (7.4-10.4); PLATELET COUNT 208 K/mm3 (130-400); RED BLOOD COUNT 2.01 M/mm3 (4.20-5.60); REDCELL DISTRIBUTION WIDTH-CV 17.2 % (11.5-14.5)
[2019-06-23 07:03] LABS: HEMATOCRIT 21.7 % (42.0-52.0); HEMOGLOBIN 7.4 g/dl (13.5-18.0); MEAN CORPUSCULAR HEMOGLOBIN 37 pg (27.0-31.0)
[2019-06-23 07:13] LABS: ALBUMIN 2.5 gm/dL (3.5-5.0); CALCIUM 7.8 mg/dL (8.4-10.2); CREATININE, serum 5.03 (0.66-1.25); POTASSIUM 3.8 mmol/L (3.4-5.0)
[2019-06-23 07:52] LABS: BAND 4 % (0-10); EOSINOPHIL 2 % (0-4); LYMPHOCYTE 15 % (20.0-51.0); METAMYELOCYTE 2 % (0-0); MYELOCYTE 4 % (0-0); NEUTROPHILS 72 % (42.0-75.2); PLATELET ESTIMATE NORMAL (NORMAL); SCHISTOCYTES 1+
[2019-06-23 08:13] VITALS: BP 123/57; PULSE 54; TEMP 97.3
--- NOTE | 2019-06-23 11:35 | NUR ---
Assessment completed, alert/orineted, vital signs stable/ SPB still marginal, denies pain or discomfort, heart RRR/ 2-3+ generalized edema, lungs are now coarse and diminished, patient feels SOA with exertion, Creat still around 5 and GFR unchanged, UOP marginal, he is sitting up in the chair with chair alarm on as patient appears to be getting weaker and per report almost fell yesterday while working with PT, he has eaten breakfast and denies needs at this time, will discuss plan of care with and update the daughter
[2019-06-23 12:15] VITALS: BP 100/41; PULSE 70; TEMP 97.8
[2019-06-23 16:39] VITALS: BP 92/42; PULSE 72; TEMP 97.6
--- NOTE | 2019-06-23 17:08 | NUR ---
Banquet Set Up Person was contacted by Thom at [facility] and Eula at [facility]. Both can accept skilled referrals. MARILUZ spoke with Emilee at [facility] who advised they could not accept referral if patient requires dialysis. MARILUZ provided these updates to patient's daughter, Amber.
[2019-06-23 19:44] VITALS: BP 117/50; PULSE 76; TEMP 98
--- NOTE | 2019-06-23 21:00 | NUR ---
SHIFT REPORT RECEIVED FROM YARED DUNLAP. YARED ASSISTED PT WITH SHOWER AT SHIFT CHANGE. SEE ASSESSMENT. PT SITTING UP IN RECLINER. NO RESP DISTRESS AT THIS TIME. FEET ELEVATED. ARMS ELEVATED ON PILLOWS. GROSS EDEMA. FAMILY HERE. QUESTIONS ANSWERED RE PROCEDURE TOMORROW. PT SOMULENT. ILIAMNA. WEARS BILAT H/A AND GLASSES. HAS OWN TEETH. CHATMAN DRAINING FREELY. CALL LIGHT IN REACH.
[2019-06-23 22:17] LABS: HEPATITIS B SURFACE ANTIBODY <2.0 (()); HEPATITIS B SURFACE ANTIGEN Negative (Negative); HEPATITIS C VIRUS ANTIBODY Negative (Negative)
[2019-06-23 22:58] VITALS: BP 106/42; PULSE 70; TEMP 98
[2019-06-24] VITALS (9 sets, daily range): BP systolic 88–115; BP diastolic 37–74; PULSE 69–79; TEMP 97.7–99.1
--- NOTE | 2019-06-24 05:29 | NUR ---
PT HAS SLEPT WELL THIS SHIFT. STATUS UNCHANGED.
--- NOTE | 2019-06-24 05:29 | NUR ---
NPO AT OR FOR VAS CATH PLACEMENT
--- NOTE | 2019-06-24 06:21 | NUR ---
PT HAS HAD A GOOD NIGHT. PT UP TO BSC FOR BM. TOTAL UO 400CC PER F/C THIS SHIFT. DENIES OTHER NEEDS.
--- NOTE | 2019-06-24 07:45 | NUR ---
patient is going to scientific laboratory supervisor at this time for a Tunnled dialysis cath placement, family present, consent signed
--- NOTE | 2019-06-24 08:25 | NUR ---
SEE JENNIFER FOR ALL MEDICATION ADMIN TIMES AND INTRAPOST SEDATION ASSESSMENT
--- NOTE | 2019-06-24 09:39 | NUR ---
BEDSIDE REPORT TO YARED FOLLOWING TDC PLACEMENT. DUAL PORTS CLAMED, PACKED WITH 1.2 CC HEPARIN PER ADEOLA. STERILE DRESSING C/D/I. FAMILY AT BEDSIDE
[2019-06-24 10:00] LABS: KAPPA FREE LIGHT CHAIN-SERUM 82.67 mg/L (()); KAPPA LAMBDA RATIO 1.86 ratio (()); LAMDA FREE LIGHT CHAIN SERUM 44.49 mg/L (())
--- NOTE | 2019-06-24 11:42 | NUR ---
patient is going down for diaylsis at this time
[2019-06-24 11:58] LABS: INR 1.3 (0.8-3.0); PROTHROMBIN TIME 15.2 SECONDS (9.7-12.8)
[2019-06-24 12:00] LABS: MEAN CELL VOLUME 109 fl (80.0-100.0); MEAN CORPUSCULAR HGB CONC 34 g/dl (33.0-37.0); MEAN PLATELET VOLUME 10.4 fl (7.4-10.4); PLATELET COUNT 189 K/mm3 (130-400); RED BLOOD COUNT 1.98 M/mm3 (4.20-5.60); REDCELL DISTRIBUTION WIDTH-CV 17.7 % (11.5-14.5)
--- NOTE | 2019-06-24 12:03 | NUR ---
Assessment completed, alert/oriented, vital signs stable, patient had right chest TDC placed by IR today, family is present in the room, he is going to dialysis
[2019-06-24 12:13] LABS: ALBUMIN 2.4 gm/dL (3.5-5.0); CALCIUM 7.6 mg/dL (8.4-10.2); CREATININE, serum 4.35 (0.66-1.25); PHOSPHOROUS 4.4 mg/dL (2.5-4.5); POTASSIUM 3.5 mmol/L (3.4-5.0)
[2019-06-24 12:17] LABS: HEMATOCRIT 21.5 % (42.0-52.0); HEMOGLOBIN 7.2 g/dl (13.5-18.0); MEAN CORPUSCULAR HEMOGLOBIN 36 pg (27.0-31.0)
[2019-06-24 12:24] LABS: BAND 21 % (0-10); EOSINOPHIL 1 % (0-4); LYMPHOCYTE 11 % (20.0-51.0); METAMYELOCYTE 3 % (0-0); NEUTROPHILS 64 % (42.0-75.2); PLATELET ESTIMATE NORMAL (NORMAL)
[2019-06-24 12:25] LABS: ANISOCYTOSIS 1+
--- NOTE | 2019-06-24 16:18 | NUR ---
Meat Washer faxed updates to [facility] and [facility]. SW to continue to follow.
--- NOTE | 2019-06-24 20:30 | NUR ---
Patient assessed at this time. Denies having pain and discomfort. Peripheral IV to right upper arm flushed. Site is without redness, warmth, swelling, and pain. Dialysis catheter to right chest. Denies pain and discomfort to area. Dressing CDI. Reports SOB with exertion only. LS CTA in upper lobes, diminished in lower. Respirations even and unlabored at rest. HRR. Telemetry in place: paced. Capillary refill less than 3 seconds. Non-tenting skin turgor. BSAx4. Abdomen soft and non-tender. 2+ edema BUE. Weeping to LUE, wrapped with kerlex. 3+ edema BLE. Bilateral heels boggy, floating. Purple area to tip of right toe. Indwelling garcia catheter with yellow urine with sediment present. Daughter at bedside, and answered questions. Call light is within reach.
[2019-06-25] VITALS (7 sets, daily range): BP systolic 88–121; BP diastolic 40–59; PULSE 67–78; TEMP 97.7–98.7
--- NOTE | 2019-06-25 02:03 | NUR ---
Patient complaining of level 6 pain to right toe, radiating up to right hip. Given PRN Tramadol as requested for pain at this time.
--- NOTE | 2019-06-25 05:52 | NUR ---
Patient's arm left arm continues to have weeping. Arm cleaned, and new kerlex wrap applied. Denies pain and discomfort to area. Reports PRN Tramadol helped, and denies pain to right leg at this time. Voices no questions, needs, or concerns. Resting in recliner with call light within reach.
[2019-06-25 06:57] LABS: MEAN CELL VOLUME 108 fl (80.0-100.0); MEAN CORPUSCULAR HGB CONC 34 g/dl (33.0-37.0); MEAN PLATELET VOLUME 10.4 fl (7.4-10.4); PLATELET COUNT 208 K/mm3 (130-400); RED BLOOD COUNT 2.15 M/mm3 (4.20-5.60); REDCELL DISTRIBUTION WIDTH-CV 17.8 % (11.5-14.5)
[2019-06-25 06:58] LABS: HEMATOCRIT 23.2 % (42.0-52.0); HEMOGLOBIN 7.8 g/dl (13.5-18.0); MEAN CORPUSCULAR HEMOGLOBIN 36 pg (27.0-31.0)
--- NOTE | 2019-06-25 08:06 | NUR ---
Pt assessment complete. Pt is sitting up in the rocking chair upon entry. He arouses to voice. He is A/O x4. His breathing is even and unlabored on RA. Pt reports "usual SOB". See lung assessment. Pt currently reports pain to BLE, PRN pain medication administered. Pt has no N/V. Aguilar DD, little urine present at this time. No further needs at this time. Call light within reach.
[2019-06-25 08:15] LABS: BAND 4 % (0-10); EOSINOPHIL 1 % (0-4); LYMPHOCYTE 11 % (20.0-51.0); METAMYELOCYTE 3 % (0-0); MYELOCYTE 3 % (0-0); NEUTROPHILS 71 % (42.0-75.2); PLATELET ESTIMATE NORMAL (NORMAL); SCHISTOCYTES 1+
[2019-06-25 13:32] LABS: ALBUMIN 2.4 gm/dL (3.5-5.0); CREATININE, serum 3.98 (0.66-1.25); PHOSPHOROUS 4.7 mg/dL (2.5-4.5); POTASSIUM 4.2 mmol/L (3.4-5.0)
--- NOTE | 2019-06-25 15:56 | NUR ---
Unit of blood taken down to patient in dialysis.
--- NOTE | 2019-06-25 19:20 | NUR ---
Pt tolerated dialysis without issues, got one unit of blood during dialysis. Denied any issues or concerns. Family at bedside. Jeff QUIJANO. Report given to FABI Ruiz.
--- NOTE | 2019-06-25 20:45 | NUR ---
Patient assessed at this time. Alert and oriented, and able to make needs known. Reported level 5 pain to right foot/leg. Given PRN Tramadol as requested for pain. Peripheral IV to right upper arm flushed. Site is without redness, warmth, swelling, and pain. Dialysis catheter to right chest. Dressing CDI. LS coarse crackles in upper lobes, diminished in lower lobes. Respirations even and unlabored. Reports SOB with exertion only. HRR. Telemetry in place: paced. Capillary refill less than 3 seconds. Non-tenting skin turgor. 2+ edema BUE. 3+ edema BLE. BSAx4. Abdomen soft and non-tender. Edema to genetalia. Indwelling garcia catheter, yellow urine with sediment present. Bilateral heels boggy, floating. No open areas. Ecchymosis to tip of right great toe. Voices no questions, needs, or concerns at this time. In recliner with call light within reach.
--- NOTE | 2019-06-25 23:17 | NUR ---
Patient continues to have pain to right foot, radiating up right leg. Given PRN APAP as requested per orders.
[2019-06-26] VITALS (8 sets, daily range): BP systolic 98–139; BP diastolic 44–83; PULSE 69–71; TEMP 97.6–98.2
--- NOTE | 2019-06-26 05:13 | NUR ---
Patient complaining of SOB. Oxygen level 86% RA. Put on oxygen at 2 L/min via NC. Increased to 94%.
--- NOTE | 2019-06-26 06:12 | NUR ---
Patient voices no furhter complaints of pain, discomfort, or SOB. VOices no questions, needs, or concerns. In recliner with legs elevated. Heels floating. Right elbow area with weeping. Wrapped with Kerlex.
[2019-06-26 07:38] LABS: BASO % 0.3 % (0.0-2.0); EOS # 0.1 (0.0-0.7); GRAN # 4.7 (1.4-6.5); GRAN % 66.7 % (42.2-75.2); LYMPH # 0.9 (1.2-3.4); LYMPH % 12.8 % (20.0-51.0); MEAN CELL VOLUME 108 fl (80.0-100.0); MEAN CORPUSCULAR HGB CONC 33 g/dl (33.0-37.0); MEAN PLATELET VOLUME 10.5 fl (7.4-10.4); MONO # 0.9 (0.1-0.6); MONO % 12.4 % (1.7-9.3); PLATELET COUNT 199 K/mm3 (130-400); RED BLOOD COUNT 2.31 M/mm3 (4.20-5.60); REDCELL DISTRIBUTION WIDTH-CV 19.3 % (11.5-14.5)
[2019-06-26 07:58] LABS: HEMOGLOBIN 8.3 g/dl (13.5-18.0); MEAN CORPUSCULAR HEMOGLOBIN 36 pg (27.0-31.0)
[2019-06-26 07:59] LABS: ALBUMIN 2.7 gm/dL (3.5-5.0); CALCIUM 8.2 mg/dL (8.4-10.2); CREATININE, serum 2.84 (0.66-1.25); PHOSPHOROUS 3.8 mg/dL (2.5-4.5)
[2019-06-26 08:02] LABS: PROTHROMBIN TIME 12.2 SECONDS (9.7-12.8)
--- NOTE | 2019-06-26 08:31 | NUR ---
PATIENT ASSESSMENT COMPLETED. HE COMPLAINS OF RIGHT FOOT/LEG HURTING. PRN ULTRAM GIVEN. HIS RIGHT ARM IS ALSO WEEPING CLEAR FLUIDS, KERLIX USED TO PROTECT. NO OTHER NEEDS AT THIS TIME.
--- NOTE | 2019-06-26 10:22 | NUR ---
KERLIX TO RIGHT ARM IS SATURATED. THIS IS REWRAPPED AT THIS TIME.
--- NOTE | 2019-06-26 15:00 | NUR ---
PATIENT RECEIVED BLOOD DURING DIALYSIS FROM 1415 TO 1500. TOLERATES WELL ACCORDING TO DIALYSIS NURSE
--- NOTE | 2019-06-26 16:30 | NUR ---
PATIENT RETURNS TO ROOM 353 AFTER DIALYSIS
--- NOTE | 2019-06-26 20:40 | NUR ---
Patient assessed at this time. Alert and oriented, and able to make needs known. Reports level 3 pain to right foot/leg. Wanted ultram at first, then changed mind. Stated he will call when ready for medication. Peripheral IV to right upper arm. Site without redness, warmth, swelling, and pain. Dialysis catheter to right chest. Dressing CDI. Moist cough. Unable to observe sputum. LS rhonchi in left upper lobe, crackles right upper lobe, diminished in lower lobes. Reports SOB and dyspnea on exertion. Respirations even and unlabored. HRR. Telemetry: paced. Capillary refill less than 3 seconds. Non-tenting skin turgor. 2+ edema BUE. 3+ BLE. Edema to genetalia. Indwelling garcia catheter draining clear yellow urine via dependent drainage. Voices no questions, needs, or concerns at this time. In recliner with call light within reach.
--- NOTE | 2019-06-27 02:55 | NUR ---
Patient complaining of level 5 pain to right toe/right leg. Given PRN Ultram as requested for pain at this time.
[2019-06-27 04:00] VITALS: BP 106/52; PULSE 70; TEMP 98
--- NOTE | 2019-06-27 05:32 | NUR ---
No further complaints of pain or discomfort at this time. New kerlex to right elbow area due to weeping. In recliner watching TV. Call light within reach.
[2019-06-27 07:16] LABS: MEAN CELL VOLUME 107 fl (80.0-100.0); MEAN CORPUSCULAR HGB CONC 33 g/dl (33.0-37.0); MEAN PLATELET VOLUME 10.4 fl (7.4-10.4); PLATELET COUNT 177 K/mm3 (130-400); RED BLOOD COUNT 2.67 M/mm3 (4.20-5.60); REDCELL DISTRIBUTION WIDTH-CV 20.5 % (11.5-14.5)
[2019-06-27 07:43] LABS: HEMATOCRIT 28.6 % (42.0-52.0); HEMOGLOBIN 9.3 g/dl (13.5-18.0); MEAN CORPUSCULAR HEMOGLOBIN 35 pg (27.0-31.0)
[2019-06-27 07:54] VITALS: BP 121/59; PULSE 70; TEMP 99
--- NOTE | 2019-06-27 08:16 | NUR ---
Pt assessment complete. Pt is sitting up in the chair upon entry, he is A/O x4. His breathing is even and unlabored on RA, no SOB at this time. Pt has productive cough. Pain to BLE, PRN pain medications administered. Pt denies N/V. Pt refusing bed bath this morning. Jeff QUIJANO. No needs at this time. Call light within reach.
--- NOTE | 2019-06-27 08:45 | NUR ---
Warfarin Follow-up Pharmacy Note Current regimen: WARFARIN 3MG QHS LABS: INR 1.0 Changes in therapy: WARFARIN 4 MG TODAY (06/27), THEN RESUME 3MG QHS
[2019-06-27 09:50] LABS: BAND 2 % (0-10); EOSINOPHIL 1 % (0-4); LYMPHOCYTE 14 % (20.0-51.0); METAMYELOCYTE 1 % (0-0); MYELOCYTE 2 % (0-0); NEUTROPHILS 70 % (42.0-75.2)
[2019-06-27 09:53] LABS: HYPOCHROMIA 1+; POLYCHROMASIA 1+
[2019-06-27 11:31] VITALS: BP 98/44; PULSE 70; TEMP 97.7
[2019-06-27 14:15] LABS: ALBUMIN 3.1 gm/dL (3.5-5.0); CALCIUM 8.7 mg/dL (8.4-10.2); CREATININE, serum 2.52 (0.66-1.25); PHOSPHOROUS 3.4 mg/dL (2.5-4.5); POTASSIUM 4.6 mmol/L (3.4-5.0)
[2019-06-27 15:30] VITALS: BP 110/49; PULSE 71; TEMP 99.1
--- NOTE | 2019-06-27 18:40 | NUR ---
Pt had uneventful day. Up in the chair most of the day. He had intermittent pain to BLE, no open sores visualized. PRN pain medications administered. Jeff QUIJANO. No needs at this time. Call light within reach.
--- NOTE | 2019-06-27 20:00 | NUR ---
Shift assessment complete. Pt resting in bedside recliner, awake, a&o, cooperative c cares. Pt c/o "aching" to feet/toe, denies need for medication at this time, reports he may want something before bed. Denies any other c/o. INT patent. Jeff to DD. Pt denies further needs at this time. Call light in reach, will continue to monitor.
[2019-06-27 20:15] VITALS: BP 132/56; PULSE 75; TEMP 97.8
[2019-06-27 23:34] VITALS: BP 107/68; PULSE 71; TEMP 97.6
[2019-06-28 03:32] VITALS: BP 106/53; PULSE 70; TEMP 97.8
[2019-06-28 07:36] LABS: PROTHROMBIN TIME 12.1 SECONDS (9.7-12.8)
[2019-06-28 08:01] VITALS: BP 122/90; PULSE 74; TEMP 98.6
--- NOTE | 2019-06-28 08:46 | NUR ---
Patient up to the chair this AM and eating breakfast. Patient is alert and oriented x 3. This AM he denies pain 5/10 in bilateral lower extremities. Skin on legs is dry/reddness with 2-3+ pitting edema. At this time pain states he does not need pain medication. Skin w/d. Color pale pink. Lungs diminshed with a few expiratory wheezes. Resp even/unlabored. Abd rounded soft with bowel sounds x 4 quads. Patient reports no issues with bowels at this time. Aguilar patent with clear yellow urine. PPP. Noted 2-3+ pitting edema bilaterally. Patient up to w/c to go to dialysis this AM. Patient off the floor.
[2019-06-28 08:48] LABS: BASO % 0.4 % (0.0-2.0); EOS # 0.2 (0.0-0.7); EOS % 2.6 % (0-4.0); GRAN % 67.9 % (42.2-75.2); LYMPH # 0.8 (1.2-3.4); LYMPH % 11.5 % (20.0-51.0); MEAN CELL VOLUME 108 fl (80.0-100.0); MEAN CORPUSCULAR HGB CONC 31 g/dl (33.0-37.0); MEAN PLATELET VOLUME 10.3 fl (7.4-10.4); MONO # 0.9 (0.1-0.6); MONO % 12.9 % (1.7-9.3); PLATELET COUNT 199 K/mm3 (130-400); RED BLOOD COUNT 2.59 M/mm3 (4.20-5.60)
[2019-06-28 09:00] LABS: HEMOGLOBIN 8.8 g/dl (13.5-18.0); MEAN CORPUSCULAR HEMOGLOBIN 34 pg (27.0-31.0)
[2019-06-28 10:31] LABS: ALBUMIN 2.8 gm/dL (3.5-5.0); CALCIUM 8.6 mg/dL (8.4-10.2); CREATININE, serum 3.1 (0.66-1.25); PHOSPHOROUS 4.2 mg/dL (2.5-4.5); POTASSIUM 4.7 mmol/L (3.4-5.0)
[2019-06-28 11:41] LABS: A/G RATIO (PEP) 1.01 (()); BETA GLOBULINS (PEP) 0.6 g/dL (0.7-1.2)
--- NOTE | 2019-06-28 12:29 | NUR ---
First visit from the warehouse receiving supervisor. No needs right now.
--- NOTE | 2019-06-28 13:02 | NUR ---
Dialysis done at this time; they were able to take off 3200 ml today.
[2019-06-28 14:27] VITALS: BP 104/44; PULSE 152; TEMP 98.4
[2019-06-28 15:03] VITALS: PULSE 98
--- NOTE | 2019-06-28 15:03 | NUR ---
Noted last set of vital signs with pulse 158. Pulse rechecked and noted to be 98
--- NOTE | 2019-06-28 16:30 | NUR ---
MARILUZ faxed updates to [facility] and [facility] [employer]. MARILUZ then met with the patient and the patient's family to follow up on preference for SNF. The patient's daughter, Stephanie, states that their first preference is [facility]. MARILUZ notified Eula at [facility]. SW to update Thom at [facility] and will continue to follow.
--- NOTE | 2019-06-28 17:12 | NUR ---
Noted INT to right upper arm leaking. Spoke with Dr. Young; INT may be discontinue. Told Dr. Young that he is on telemetry. New order to discontinue telemetry.
--- NOTE | 2019-06-28 19:10 | NUR ---
Received report from day shift nurse. Seen patient awake, sitting in a recliner. With garcia catheter. Patient denies any pain. Will continue to monitor.
[2019-06-28 19:17] VITALS: BP 109/43; PULSE 74; TEMP 99
--- NOTE | 2019-06-28 19:20 | NUR ---
Coral, clinical nursing professor reported SPO2 at 84% on roomair. Hooked patient to O2 at 4lpm via NC. Checked on SPO2 and it read at 97%. Patient denies any difficulty of breathing. Patient still in a recliner, awake with both legs elevated.
[2019-06-28 23:11] VITALS: BP 101/52; PULSE 71; TEMP 98.4
[2019-06-29 03:34] VITALS: BP 101/58; PULSE 67; TEMP 98.8
--- NOTE | 2019-06-29 06:04 | NUR ---
Patient states that his bandage on his right arm is already wet. Cleaned it with warm wet wipes and applied new bandage. Patient is still in the recliner, feet down. No other complains noted. On O2 at 4lpm via NC.
[2019-06-29 06:58] LABS: INR 1.1 (0.8-3.0); PROTHROMBIN TIME 12.5 SECONDS (9.7-12.8)
[2019-06-29 07:53] VITALS: BP 128/62; PULSE 70; TEMP 97.9
[2019-06-29 08:03] VITALS: BP 146/75; PULSE 57; TEMP 97.9
--- NOTE | 2019-06-29 08:20 | NUR ---
Assessment completed, alert/oriented, vital signs stable, denies pain or discomfort, edema to extremities is improving greatly, lungs are still diminished but CTA, he did have a drop in O2 sats during the night requring him to wear some O2 but is back to Room air this mrmandie/ daughters report LEON hx without use of c-pap, heart RRR/ distal pulse are weak but palpable, patient is sitting up in his chair eating breakfast at this time, a.m meds given, denies other needs, plans for discharge plannning to SNF today
[2019-06-29] MEDS ORDERED: FLOMAX 0.40.4 MG/CAP PO (11:39)
[2019-06-29] MEDS ORDERED: COUMADIN 3MG3 MG/TAB PO (11:40)
[2019-06-29] MEDS ORDERED: REGLAN 5MG T5 MG/TAB PO (11:41)
[2019-06-29] MEDS ORDERED: JANUVIA25 MG PO (11:42)
[2019-06-29] MEDS ORDERED: MAG-OX 400400 MG/TAB PO (11:42)
[2019-06-29] MEDS ORDERED: FOLIC ACID 11 MG/TA1 PO (11:43)
[2019-06-29] MEDS ORDERED: B-121000 MCG PO (11:43)
[2019-06-29] MEDS ORDERED: SYNTHROID 0.0.025 MG PO (11:43)
[2019-06-29 11:45] VITALS: BP 126/57; PULSE 71; TEMP 97.8
[2019-06-29] MEDS ORDERED: EPA FISH OIL1 SGL PO (11:56)
[2019-06-29] MEDS ORDERED: CORDARONE200 MG/TAB PO (11:56)
[2019-06-29] MEDS ORDERED: PROAMATINE10 MG PO (11:59)
[2019-06-29] MEDS ORDERED: LASIX 80MG TABL80 MG PO (12:18)
[2019-06-29 13:08] LABS: CALCIUM 8.3 mg/dL (8.4-10.2); CREATININE, serum 2.34 (0.66-1.25); PHOSPHOROUS 3.4 mg/dL (2.5-4.5); POTASSIUM 4.5 mmol/L (3.4-5.0)
--- NOTE | 2019-06-29 13:51 | NUR ---
The patient is to discharge today, 06/29, to [facility] for a skilled stay. Transportation was scheduled for 1600, via [facility]. MARILUZ informed the patient's RN and his daughter (Stephanie). MARILUZ also presented and explained the IM form to the patient's daughter, Stephanie, Stephanie verbalized understanding, signed, and she was provided a copy. No additional needs at this time.
[2019-06-29 15:19] VITALS: BP_SYST 8
--- NOTE | 2019-06-29 16:41 | NUR ---
patient transferring to [facility] SN[facility], I have called and given report to receiving nurse radha Alvarez left in place per orders
== END 2019-06-29 16:42 | DRG 674 ==
LOC: COL.ER 18:22 → MEDICAL 20:21
PROVIDERS: Emergency Medicine; ADMIT Internal Medicine Nephrology
PROC: 0JH63XZ Insertion of Tunneled Vascular Access Device into Chest Subcutaneous Tissue and Fascia, Percutaneous Approach (ICD-10-PCS; principal; 2019-06-24)
PROC: 02H633Z Insertion of Infusion Device into Right Atrium, Percutaneous Approach (ICD-10-PCS; 2019-06-24)
PROC: 5A1D70Z Performance of Urinary Filtration, Intermittent, Less than 6 Hours Per Day (ICD-10-PCS; 2019-06-24)
DX: N17.0 Acute kidney failure with tubular necrosis (principal); E87.2 Acidosis; I13.0 Hypertensive heart and chronic kidney disease with heart failure and stage 1 through stage 4 chronic kidney disease, or unspecified chronic kidney disease; N18.3 Chronic kidney disease, stage 3 (moderate); E87.5 Hyperkalemia; I48.0 Paroxysmal atrial fibrillation; E83.42 Hypomagnesemia; G47.33 Obstructive sleep apnea (adult) (pediatric); I35.0 Nonrheumatic aortic (valve) stenosis; I50.9 Heart failure, unspecified; D63.1 Anemia in chronic kidney disease; K59.00 Constipation, unspecified; E78.5 Hyperlipidemia, unspecified; I87.2 Venous insufficiency (chronic) (peripheral); E11.22 Type 2 diabetes mellitus with diabetic chronic kidney disease; Z79.01 Long term (current) use of anticoagulants; Z79.4 Long term (current) use of insulin; Z87.891 Personal history of nicotine dependence; Z95.0 Presence of cardiac pacemaker; Z88.2 Allergy status to sulfonamides
CPT/HCPCS: C1769; J0610; J0690; J1644; J1815; J1940; J2250; J2765; J3010; J7030; J7050; P9016; Q5106